=== PATIENT | female | born 1950 | race Caucasian/White ===

== ENCOUNTER 2023-06-10 23:08 | Emergency (ER) | payer MEDICAID ==
[~2023-06-10] VITALS: Ht 147.3 cm; Wt 67.9 kg
[2023-06-10 23:11] VITALS: O2SAT 97
[2023-06-10 23:49] LABS: BASOPHILS % 0.3 % (0.0-2.0); CHLORIDE 99 mEq/L (98-107); EOSINOPHILS % 6.6 % (0.0-5.0); HEMATOCRIT. 34.4 % (36.0-48.0); LYMPHOCYTES % 32.8 % (20.0-50.0); MEAN CORPUSCULAR HEMOGLOBIN 29.1 pg (28.0-32.0); MEAN CORPUSCULAR VOLUME 83.2 fL (81.0-99.0); MEAN PLATELET VOLUME 8.1 fl (7.4-10.4); NEUTROPHILS % 53.3 % (40.0-76.0); PLATELET 260 x1000/uL (130-400); RED BLOOD CELL COUNT 4.13 mill/uL (4.2-5.4); RED CELL DISTRIBUTION WIDTH 14.5 % (11.6-14.6)
[2023-06-10 23:59] LABS: CLARITY URINE CLEAR (CLEAR); COLOR URINE YELLOW (YELLOW); KETONES URINE NEGATIVE (NEGATIVE); LEUKOCYTE ESTERASE URINE NEGATIVE (NEGATIVE); NITRITE URINE NEGATIVE (NEGATIVE); OCCULT BLOOD URINE NEGATIVE (NEGATIVE); PH URINE 6.5 (4.5-8.0); PROTEIN URINE NEGATIVE (NEGATIVE); SPECIFIC GRAVITY URINE 1.014 (1.005-1.030)
[2023-06-11 02:00] VITALS: TEMP 98
[2023-06-11 03:46] VITALS: BP 140/63; PULSE 82; RESP 13
== END 2023-06-11 03:47 | disposition admitted as inpatient to this hospital (09) ==
LOC: ER 23:08 → CANBEDREQ 06-11 06:48
DX: R07.89 Other chest pain (principal); I10 Essential (primary) hypertension; E78.00 Pure hypercholesterolemia, unspecified; E11.9 Type 2 diabetes mellitus without complications
CPT/HCPCS: 36415; 71045; 72128; 80053; 81003; 83880; 84484; 85025; 93005; 99285